=== PATIENT | male | born 1955 | race Caucasian/White ===

== ENCOUNTER 2017-08-04 19:55 | Emergency (ER) | payer BC ==
[~2017-08-04] VITALS: Ht 182.9 cm; Wt 94.7 kg
[~2017-08-04 19:55] MED LIST: ASPIRIN325 MG PO; ENDOCET 5-3251 EACH PO; LISINOPRIL5 MG PO; METFORMIN HCL500 MG PO; NITROSTAT0.4 MG SL; PLAVIX75 MG PO; SIMVASTATIN40 MG PO; WELLBUTRIN XL150 MG PO
[2017-08-04 21:00] VITALS: BP 143/95
[2017-08-04] MEDS ORDERED: PERCOCET 5/31 TABLET PO (21:49)
[2017-08-04] MEDS ORDERED: KEFLEX500 MG PO (21:49)
== END 2017-08-04 22:09 | disposition home or self-care (01) ==
LOC: EME → EDBD 19:55 → EME 19:55
DX: S60.352A Superficial foreign body of left thumb, initial encounter (principal); W45.8XXA Other foreign body or object entering through skin, initial encounter; E11.9 Type 2 diabetes mellitus without complications; E78.5 Hyperlipidemia, unspecified; I25.2 Old myocardial infarction; Z95.5 Presence of coronary angioplasty implant and graft; Z79.02 Long term (current) use of antithrombotics/antiplatelets; Z79.82 Long term (current) use of aspirin; Z79.84 Long term (current) use of oral hypoglycemic drugs; Z87.891 Personal history of nicotine dependence
CPT/HCPCS: 73130; 99281; 99284; J2250; J3010

== ENCOUNTER 2018-01-01 18:50 | Observation (INO) | payer BC ==
[~2018-01-01] VITALS: Ht 182.9 cm; Wt 93.0 kg
[~2018-01-01 18:50] MED LIST changes: +KEFLEX500 MG PO; +PERCOCET 5/31 TABLET PO
[2018-01-01 19:37] LABS: HEMATOCRIT 45.9 % (38.0-50.0); HEMOGLOBIN 16.4 G/DL (12.5-16.6); MCHC 35.7 G/DL (30.0-36.0); MCV 83.9 FL (86-99); PLATELET COUNT 195 K/uL (156-360); RBC DIS.WIDTH-SD 36.5 % (39-53); RED BLOOD COUNT 5.47 M/uL (4.00-5.50); WHITE BLOOD COUNT 11.7 K/uL (4.1-10.2)
[2018-01-01 19:55] LABS: TROP-I INTERPRETATION NEGATIVE; TROPONIN-I < 0.01 ng/mL (0.0-0.30)
[2018-01-01 19:56] LABS: ALBUMIN 4.2 G/DL (3.2-4.8); ALKALINE PHOSPHATASE 65 IU/L (3-129); ALT (GPT) 29 IU/L (3-49); AST (GOT) 18 IU/L (2-34); CHLORIDE 100 MEQ/L (99-109); CREATININE 0.9 MG/DL (0.6-1.3); GFR ESTIMATE (CALCULATED) > 59 mL/min/ (58.99-99999); GLUCOSE 207 mg/dL (70-99); LIPASE 92 U/L (1.0-51.0); POTASSIUM 4.5 MEQ/L (3.7-5.4); SODIUM 134 MEQ/L (136-147); TOTAL BILIRUBIN 0.7 MG/DL (0.0-1.0); TOTAL PROTEIN 6.9 G/DL (6.4-8.3); UREA NITROGEN (BUN) 19 mg/dL (9-23)
[2018-01-01] MEDS ORDERED: AMARYL2 MG PO (21:51)
[2018-01-01] MEDS ORDERED: CHERATUSSIN AC473 ML PO (21:51)
[2018-01-01 22:59] VITALS: BP 123/81
[2018-01-02 02:15] LABS: TROP-I INTERPRETATION NEGATIVE; TROPONIN-I < 0.01 ng/mL (0.0-0.30)
[2018-01-02 04:13] VITALS: BP 123/74
[2018-01-02 08:21] LABS: TROP-I INTERPRETATION NEGATIVE; TROPONIN-I < 0.01 ng/mL (0.0-0.30)
[2018-01-02 08:34] LABS: HDL CHOLESTEROL 29 MG/DL (Desirable>=40); LDL CHOLESTEROL 81 mg/dL (Desirable<100); NON-HDL CHOLESTEROL 102 mg/dL (Desirable<160); TOTAL CHOLESTEROL 131 mg/dL (Desirable<200); TRIGLYCERIDES 106 MG/DL (Normal: <150)
[2018-01-02 08:36] VITALS: BP 105/61
[2018-01-02 09:27] LABS: HEMOGLOBIN A1c (GLYCOHEMOGLOB) 8.7 % (Below 5.7)
[2018-01-02] MEDS ORDERED: LEVAQUIN750 MG PO (11:14)
[2018-01-02 11:50] VITALS: BP 119/78
== END 2018-01-02 14:01 | disposition home or self-care (01) ==
LOC: EME 18:50 → EDOF 21:43 → 5WEST 21:43 → ENRESERV 21:45 → 5WEST 22:35 → ENPENDDIS 01-02 → 5WEST 01-02 14:01
PROVIDERS: Emergency Medicine; Hospitalist; Physician Assistant Medical
DX: R07.89 Other chest pain (principal); J18.9 Pneumonia, unspecified organism; R74.8 Abnormal levels of other serum enzymes; I25.10 Atherosclerotic heart disease of native coronary artery without angina pectoris; Z95.5 Presence of coronary angioplasty implant and graft; I25.2 Old myocardial infarction; E11.65 Type 2 diabetes mellitus with hyperglycemia; E78.5 Hyperlipidemia, unspecified; Z87.891 Personal history of nicotine dependence; Z85.828 Personal history of other malignant neoplasm of skin; L40.9 Psoriasis, unspecified; Z91.030 Bee allergy status; Z79.82 Long term (current) use of aspirin; Z79.84 Long term (current) use of oral hypoglycemic drugs; E66.3 Overweight; Z79.02 Long term (current) use of antithrombotics/antiplatelets
CPT/HCPCS: 71045; 74176; 80053; 80061; 82948; 83036; 83690; 84484; 85027; 87040; 87502; 93005; 99202; 99281; 99285; G0378; J0295; J0456; J7050; J7120